=== PATIENT | male | born 1995 | race Hispanic/Latino ===

== ENCOUNTER 2021-11-26 03:35 | Emergency (ER) | payer OTHER ==
[~2021-11-26] VITALS: Ht 157.5 cm; Wt 51.7 kg
[2021-11-26 04:12] VITALS: BP 131/72
== END 2021-11-26 04:19 | disposition home or self-care (01) ==
LOC: EDH 03:35
DX: Z02.89 Encounter for other administrative examinations (principal); Z65.3 Problems related to other legal circumstances